=== PATIENT | female | born 1975 | race Hispanic/Latino ===

== ENCOUNTER 2018-08-23 11:03 | Emergency (ER) | payer OTHER ==
[2018-08-23] MEDS ORDERED: ACETAMINOPHEN EXTRA STRENGTH 500 MG TABLET ONE (11:20)
[2018-08-23] MEDS ORDERED: CYCLOBENZAPRINE HCL 10 MG TABLET ONE (11:21)
== END 2018-08-23 11:32 | disposition home or self-care (01) ==
LOC: EDH 11:03 → EEVIPCON 11:03 → EDH 11:32
DX: M54.5 Low back pain (principal); G89.29 Other chronic pain; Z90.710 Acquired absence of both cervix and uterus; Z88.8 Allergy status to other drugs, medicaments and biological substances